=== PATIENT | female | born 1990 | race Caucasian/White ===

== ENCOUNTER → 2018-05-03 | Day surgery (SDC) | payer BC ==
--- NOTE | 2018-05-03 15:49 | RADIOLOGY REPORT (SQ) ---
EXAM DESCRIPTION: PICC INSERTION; FLUORO/CV PLACEMENT; U/S GUIDE FOR VASCULAR ACCESS COMPLETED DATE/TIME: 05/03/2018 3:08 pm REASON FOR STUDY: PROTEIN MALNUTRITION (E46) E46 UNSPECIFIED PROTEIN-CALORIE MALNUTRITION COMPARISON: None. FLUOROSCOPY TIME: 5 seconds 2 digital fluoro chest images and 1 ultrasound image saved to PACS. TECHNIQUE: Fluoroscopic and ultrasound guided PICC placement. LIMITATIONS: None. PROCEDURE: After written consent and assessment were obtained, the patient was brought into the fluo roscopy room and place supine on the table. Ultrasound evaluation of potential access sites were perf ormed. After successfully identifying a patent left basilic vein, the left arm was prepped and draped in a sterile fashion along with the ultrasound probe. The entry site was anesthetized with 1% lidoca ine. A 21 gauge 7 cm needle was advanced through the skin and into the basilic vein under live ultras ound guidance. An ultrasound image was saved to PACS confirming access site. A .018 guide wire was then inserted through the needle and into the venous system. The needle was the removed and an 11 shan de scalpel was used to make a 1cm skin incision. A 5 fr peel-away sheath was advanced over the wire and into the venous system. A measurement was then made using the existing wire and live fluoroscopic guidance. The wire was then removed and the trimmed. The PICC was advanced through the peel-away she ath and into the venous system. The peel-away sheath was removed and the catheter was adhered to the patients arm with a stat lock. The catheter was then aspirated and flushed and a sterile bandage was placed over the access site. A fluoroscopic spot image was saved to PACS confirming the catheter tip within the superior vena cava. IMPRESSION: SUCCESSFUL PLACEMENT OF A 5 FR DUAL LUMEN 31 CM PICC IN THE LEFT BASILIC VEIN. COMMENT: Patient medication list reviewed: Yes- Quality ID# [id number]:Eligible professional attests to doc umenting in the medical record they obtained, updated, or reviewed the patient's current medications. . Quality ID 145: Final reports for procedures using fluoroscopy that document radiation exposure declan rhona, or exposure time and number of fluorographic images (if radiation exposure indices are not avail able) Quality ID #76: The patient was prepped and draped using maximum sterile barrier technique including cap, mask, sterile gown, sterile gloves, a large sterile sheet, hand hygiene, and 2% Chlorhexidine fo r cutaneous antisepsis. When ultrasound is used, sterile ultrasound techniques are followed requiring sterile gel and sterile probes. TECHNICAL DOCUMENTATION: JOB ID: [id number] [employer]- All Rights Reserved rev-01/29 Reading location - IP/workstation name: [facility]
== END ==
LOC: RAD 12:55 → EDSTATUS 14:00
PROVIDERS: ATTEND Physician Assistant
DX: E46 Unspecified protein-calorie malnutrition (principal)
CPT/HCPCS: 36569; 77001; 76937; J1642

== ENCOUNTER → 2018-07-12 | Day surgery (SDC) | payer BC ==
--- NOTE | 2018-07-12 15:32 | RADIOLOGY REPORT (SQ) ---
EXAM DESCRIPTION: PICC LINE REPLACEMENT; FLUORO/CV PLACEMENT COMPLETED DATE/TIME: 07/12/2018 2:49 pm REASON FOR STUDY: Z95.828 PRESENCE OF OTHER VASCULAR IMPLANTS AND GRAFTS; Z95.828 PRESENCE OF OTHER VASCULAR IMPLANTS AND GRAFTS Z95.828 PRESENCE OF OTHER VASCULAR IMPLANTS AND GRAFTS COMPARISON: None. FLUOROSCOPY TIME: 0.23 minutes. 1 images saved to PACS. TECHNIQUE: Fluoroscopic guided PICC replacement. LIMITATIONS: None. PROCEDURE: After written consent and assessment were obtained, the patient was brought into the fluo roscopy room and place supine on the table. The left arm an existing PICC was prepped and draped in a sterile fashion. The entry site was anesthetized with 1% lidocaine. A .018 guide wire was then in serted through the existing PICC and into the venous system. The old catheter was then removed and a new catheter measuring 31 cm was advanced over the wire and into the venous system. The wire was the n removed and the catheter was adhered to the patients arm with a stat lock. The catheter was then as pirated and flushed and a sterile bandage was placed over the access site. A fluoroscopic spot image was saved to PACS confirming the catheter tip within the superior vena cava. IMPRESSION: SUCCESSFUL OVER THE WIRE REPLACEMENT OF AN OLD PICC FOR A NEW ONE THAT IS 5 FR DUAL LUME N 31 CM PICC IN THE LEFT ARM. COMMENT: Patient medication list reviewed: Yes- Quality ID# [id number]:Eligible professional attests to doc umenting in the medical record they obtained, updated, or reviewed the patient's current medications. . Quality ID 145: Final reports for procedures using fluoroscopy that document radiation exposure declan rhona, or exposure time and number of fluorographic images (if radiation exposure indices are not avail able) Quality ID #76: The patient was prepped and draped using maximum sterile barrier technique including cap, mask, sterile gown, sterile gloves, a large sterile sheet, hand hygiene, and 2% Chlorhexidine fo r cutaneous antisepsis. When ultrasound is used, sterile ultrasound techniques are followed requiring sterile gel and sterile probes. TECHNICAL DOCUMENTATION: JOB ID: [id number] [employer]- All Rights Reserved Reading location - IP/workstation name: [facility]
== END ==
LOC: RAD 13:48
PROVIDERS: ATTEND Surgery
DX: Z95.828 Presence of other vascular implants and grafts (principal)
CPT/HCPCS: 36584; 77001; C1769; J1642

== ENCOUNTER → 2018-08-16 | Day surgery (SDC) | payer BC, OTHER ==
--- NOTE | 2018-08-16 15:40 | RADIOLOGY REPORT (SQ) ---
EXAM DESCRIPTION: PICC INSERTION; FLUORO/CV PLACEMENT; U/S GUIDE FOR VASCULAR ACCESS COMPLETED DATE/TIME: 08/16/2018 3:26 pm REASON FOR STUDY: E46 UNSPECIFIED PROTEIN-CALORIE MALNUTRITION; MALNUTRITION E46 UNSPECIFIED PROTEI N-CALORIE MALNUTRITION COMPARISON: None. FLUOROSCOPY TIME: 23 seconds 1 digital fluoro chest image and 1 ultrasound image saved to PACS. TECHNIQUE: Fluoroscopic and ultrasound guided PICC placement. LIMITATIONS: None. PROCEDURE: After written consent and assessment were obtained, the patient was brought into the fluo roscopy room and placed supine on the table. Ultrasound evaluation of potential access sites were per formed. After successfully identifying a patent right basilic vein, the right arm was prepped and bessy ped in a sterile fashion along with the ultrasound probe. The entry site was anesthetized with 1% lid ocaine. A 21 gauge 7 cm needle was advanced through the skin and into the basilic vein under live ult rasound guidance. An ultrasound image was saved to PACS confirming access site. A .018 guide wire w as then inserted through the needle and into the venous system. The needle was then removed and an 11 blade scalpel was used to make a 1cm skin incision. A 5 fr peel-away sheath was advanced over the w shamar and into the venous system. A measurement was then made using the existing wire and live fluorosc opic guidance. The wire was then removed and trimmed. The PICC was advanced through the peel-away she ath and into the venous system. The peel-away sheath was removed and the catheter was adhered to the patients arm with a stat lock. The catheter was then aspirated and flushed and a sterile bandage was placed over the access site. A fluoroscopic spot image was saved to PACS confirming the catheter tip within the superior vena cava. IMPRESSION: SUCCESSFUL PLACEMENT OF A 5 FR DUAL LUMEN 35 CM PICC IN THE RIGHT BASILIC VEIN. COMMENT: Patient medication list reviewed: Yes- Quality ID# [id number]:Eligible professional attests to doc umenting in the medical record they obtained, updated, or reviewed the patient's current medications. . Quality ID 145: Final reports for procedures using fluoroscopy that document radiation exposure declan rhona, or exposure time and number of fluorographic images (if radiation exposure indices are not avail able) Quality ID #76: The patient was prepped and draped using maximum sterile barrier technique including cap, mask, sterile gown, sterile gloves, a large sterile sheet, hand hygiene, and 2% Chlorhexidine fo r cutaneous antisepsis. When ultrasound is used, sterile ultrasound techniques are followed requiring sterile gel and sterile probes. TECHNICAL DOCUMENTATION: JOB ID: [id number] [employer]- All Rights Reserved rev-01/29 Reading location - IP/workstation name: [email or web address] [id number]
== END ==
LOC: RAD 14:28
PROVIDERS: ATTEND Surgery
DX: E46 Unspecified protein-calorie malnutrition (principal)
CPT/HCPCS: 36569; 77001; 76937; J1642